=== PATIENT | female | born 1960 | race Hispanic/Latino ===

== ENCOUNTER 2017-11-03 19:30 | Outpatient (CLI) | payer MEDICARE, MEDICAID | END 2017-11-03 19:31 | disposition home or self-care (01) | LOC: SLEEPLAB 19:30 | PROVIDERS: ATTEND Family Medicine | DX: G47.33 Obstructive sleep apnea (adult) (pediatric) (principal); G47.10 Hypersomnia, unspecified; F41.9 Anxiety disorder, unspecified; I10 Essential (primary) hypertension | CPT/HCPCS: 95810 ==

== ENCOUNTER 2017-12-04 23:30 | Emergency (ER) | payer MEDICARE, MEDICAID | END 2017-12-05 00:02 | disposition home or self-care (01) | LOC: SCSER 23:30 | DX: L23.7 Allergic contact dermatitis due to plants, except food (principal); E78.5 Hyperlipidemia, unspecified; I10 Essential (primary) hypertension; E11.9 Type 2 diabetes mellitus without complications; F41.9 Anxiety disorder, unspecified; Z79.899 Other long term (current) drug therapy; Z79.84 Long term (current) use of oral hypoglycemic drugs | CPT/HCPCS: 99282 ==

== ENCOUNTER 2018-02-22 08:58 | Emergency (ER) | payer MEDICARE, MEDICAID ==
--- NOTE | 2018-02-22 10:04 | RAD ---
PA AND LATERAL VIEWS CHEST: Date: 02/22/18 HISTORY: Cough. FINDINGS: Comparison made with exam of 07/25/06. The cardiomediastinum is normal. The lungs are well expanded without focal areas of consolidation, pn eumothoraces, or pleural effusions. No acute osseous abnormalities are seen. IMPRESSION: No radiographic evidence of acute cardiopulmonary process. POS: [facility]
== END 2018-02-22 09:30 | disposition home or self-care (01) ==
LOC: SCSER 08:58
DX: J06.9 Acute upper respiratory infection, unspecified (principal); E78.5 Hyperlipidemia, unspecified; I10 Essential (primary) hypertension; E11.9 Type 2 diabetes mellitus without complications; F32.9 Major depressive disorder, single episode, unspecified; F41.9 Anxiety disorder, unspecified; Z79.899 Other long term (current) drug therapy; Z79.84 Long term (current) use of oral hypoglycemic drugs
CPT/HCPCS: 71046

== ENCOUNTER 2018-04-07 22:18 | Emergency (ER) | payer MEDICARE, MEDICAID | END 2018-04-08 00:10 | disposition home or self-care (01) | LOC: SCSER 22:18 | DX: M19.071 Primary osteoarthritis, right ankle and foot (principal); I10 Essential (primary) hypertension; E11.9 Type 2 diabetes mellitus without complications; F41.9 Anxiety disorder, unspecified; F32.9 Major depressive disorder, single episode, unspecified; E78.5 Hyperlipidemia, unspecified; Z79.899 Other long term (current) drug therapy; Z79.84 Long term (current) use of oral hypoglycemic drugs | CPT/HCPCS: 99283 ==

== ENCOUNTER 2018-07-20 22:09 | Emergency (ER) | payer MEDICARE, MEDICAID ==
[2018-07-20] MEDS ORDERED: Diazepam 5 MG TAB ONE (22:34)
[2018-07-20] MEDS ORDERED: Ketorolac Tromethamine 30 MG/ML VIAL ONE (22:35)
--- NOTE | 2018-07-20 23:11 | RAD ---
LUMBAR SPINE THREE VIEWS: HISTORY: Midline tenderness. Fall. Pain. FINDINGS: There are five lumbar type vertebral bodies. Vertebral body height is maintained. Disk space height s are preserved. No spondylolisthesis or spondylolysis. IMPRESSION: Unremarkable three views lumbar spine. POS: [facility]
[2018-07-20] MEDS ORDERED: Acetaminophen 325 MG TAB ONE ×2 (23:13→23:14)
[2018-07-20] MEDS ORDERED: HYDROcodone/Acetaminophen 10/325 mg Tablet ONE (23:13)
== END 2018-07-21 00:04 | disposition home or self-care (01) ==
LOC: SCSER 22:09
DX: M54.42 Lumbago with sciatica, left side (principal); E78.5 Hyperlipidemia, unspecified; I10 Essential (primary) hypertension; E11.9 Type 2 diabetes mellitus without complications; F32.9 Major depressive disorder, single episode, unspecified; F41.9 Anxiety disorder, unspecified; Z79.899 Other long term (current) drug therapy; Z79.84 Long term (current) use of oral hypoglycemic drugs
CPT/HCPCS: 72100; 96372; J1885

== ENCOUNTER 2018-11-13 13:55 | Outpatient (CLI) | payer MEDICARE, MEDICAID ==
--- NOTE | 2018-11-28 18:23 | MMO ---
Bilateral MAMMO Bilat Screen [facility]DI. CLINICAL HISTORY: Patient is 58 years old and is seen for screening. The patient has the following family history of breast cancer: mother, at age 48. The patient has no personal history of cancer. VIEWS: The views performed were: bilateral craniocaudal and bilateral mediolateral oblique. FILMS COMPARED: The present examination has been compared to prior imaging studies performed at [facility] on 02/08/2008 and 02/12/2008, and at [facility] on 11/25/2016 and 03/30/2017. This study has been interpreted with the assistance of computer-aided detection. MAMMOGRAM FINDINGS: There are scattered fibroglandular densities. There are no suspicious masses, suspicious calcifications, or new areas of architectural distortion. IMPRESSION: THERE IS NO MAMMOGRAPHIC EVIDENCE OF MALIGNANCY. A ROUTINE FOLLOW-UP MAMMOGRAM IN 1 YEAR IS RECOMMENDED. ACR BI-RADS Category 1 - Negative MAMMOGRAPHY NOTE: 1. A negative mammogram report should not delay a biopsy if a dominant of clinically suspicious mass is present. 2. Approximately 10% to 15% of breast cancers are not detected by mammography. 3. Adenosis and dense breasts may obscure an underlying neoplasm.
== END 2018-11-13 13:56 | disposition home or self-care (01) ==
LOC: SCSMAMMO 13:55
PROVIDERS: ATTEND Family Medicine
DX: Z12.31 Encounter for screening mammogram for malignant neoplasm of breast (principal); Z80.3 Family history of malignant neoplasm of breast
CPT/HCPCS: 77067

== ENCOUNTER 2019-04-08 16:16 | Emergency (ER) | payer MEDICARE, MEDICAID ==
[2019-04-08] MEDS ORDERED: Ketorolac Tromethamine 60 MG/2 ML VIAL ONE (16:37)
--- NOTE | 2019-04-08 16:48 | RAD ---
EXAM: XR Shoulder Lt 3 View STANDARD PROVIDED CLINICAL HISTORY: 3 views left shoulder FINDINGS: There is no evidence for fracture or other acute osseous abnormality. Alignment appears anatomic. Alma nt spaces appear preserved. Mild acromioclavicular joint degenerative change. Visualized left lung field appears clear. IMPRESSION: No evidence for an acute osseous abnormality. If there is persistent clinical concern, conservative m anagement and follow-up imaging advised.
--- NOTE | 2019-04-08 16:48 | RAD ---
EXAM: XR Humerus Lt 2 View STANDARD PROVIDED CLINICAL HISTORY: Pain FINDINGS: There is no evidence for fracture or other acute osseous abnormality. IMPRESSION: No evidence for an acute osseous abnormality. If there is persistent clinical concern, conservative m anagement and follow-up imaging advised.
== END 2019-04-08 17:07 | disposition home or self-care (01) ==
LOC: SCSER 16:16
DX: M25.512 Pain in left shoulder (principal); E78.5 Hyperlipidemia, unspecified; E78.00 Pure hypercholesterolemia, unspecified; I10 Essential (primary) hypertension; E11.9 Type 2 diabetes mellitus without complications; F32.9 Major depressive disorder, single episode, unspecified; F41.9 Anxiety disorder, unspecified; F17.210 Nicotine dependence, cigarettes, uncomplicated; Z79.84 Long term (current) use of oral hypoglycemic drugs; Z79.899 Other long term (current) drug therapy
CPT/HCPCS: 96372; J1885

== ENCOUNTER 2020-10-08 13:06 | Outpatient (CLI) | payer MEDICARE, MEDICAID | END 2020-10-08 13:07 | disposition home or self-care (01) | LOC: BICMRI 13:06 | PROVIDERS: ATTEND Orthopaedic Surgery | DX: M25.562 Pain in left knee (principal); S83.242A Other tear of medial meniscus, current injury, left knee, initial encounter ==

== ENCOUNTER 2020-12-14 11:11 | Outpatient (CLI) | payer MEDICARE, MEDICAID ==
[2020-12-14 13:10] LABS: #Eosinphils 0.1 10x3/uL (0.0-0.5); #Monocytes 0.5 10x3/uL (0.0-1.1); #Neutrophils 2.6 10x3/uL (1.5-8.4); %Basophils 0.4 % (0.0-2.0); %Eosinophils 2.3 % (0.0-6.0); %Lymphocytes 32.6 % (18.0-47.0); %Monocytes 10.4 % (0.0-10.0); %Neutrophils 54.1 % (40.0-75.0); Hemoglobin 12.1 g/dL (12.0-15.5); Mean Corpuscular HGB CONC 31.9 g/dL (32.0-36.0); Platelet Count 181 10x3/uL (150-450); RBC Distribution Width 12.9 % (11.5-14.5); Red Blood Cell (RBC) Count 4.03 10x6/uL (3.90-5.03); White Blood Cell (WBC) Count 4.8 10x3/uL (3.5-10.5)
[2020-12-15 06:59] LABS: SARS-CoV-2 PCR by NAA Not Detected (NotDetected)
== END 2020-12-14 11:12 | disposition home or self-care (01) ==
LOC: LABBT 11:11
PROVIDERS: ATTEND Orthopaedic Surgery
DX: Z01.818 Encounter for other preprocedural examination (principal); S83.242A Other tear of medial meniscus, current injury, left knee, initial encounter; M17.12 Unilateral primary osteoarthritis, left knee; Z20.822 Contact with and (suspected) exposure to COVID-19
CPT/HCPCS: 85025; 93005; U0003; U0005; 87635; 93010

== ENCOUNTER 2020-12-17 05:59 | Day surgery (SDC) | payer MEDICARE, MEDICAID ==
[2020-12-15 14:42] VITALS: BMI 38.4
[2020-12-17] MEDS ORDERED: Lidocaine 1% (PF) 30 ML VIAL ONE (06:26)
[2020-12-17] MEDS ORDERED: Bupivacaine 0.25% HCL 30 ML VIAL ONE (06:26)
[2020-12-17] MEDS ORDERED: EPINEPHrine 1 MG/ML AMP ONE (06:26)
[2020-12-17] MEDS ORDERED: Midazolam HCl 2 mg/2 ml Vial ONE (06:52)
[2020-12-17] MEDS ORDERED: Dexamethasone 20 MG/5 ML VIAL ONE (07:29)
[2020-12-17] MEDS ORDERED: PROPOFOL 200 MG/20 ML VIAL ONE (07:29)
[2020-12-17] MEDS ORDERED: Ondansetron PF 4 MG/2 ML Vial ONE (07:29)
[2020-12-17] MEDS ORDERED: Lidocaine 1% PF 5 ML VIAL ONE (07:29)
[2020-12-17] MEDS ORDERED: Fentanyl 100 MCG/2 ML VIAL ONE ×2 (07:35→08:46)
[2020-12-17] MEDS ORDERED: HYDROcodone/Acetaminophen 5/325 mg Tablet ONE (09:08)
== END 2020-12-17 10:30 | disposition home or self-care (01) ==
LOC: SDC 05:59
PROVIDERS: ATTEND Orthopaedic Surgery
PROC: 0SBD4ZZ Excision of Left Knee Joint, Percutaneous Endoscopic Approach (ICD-10-PCS; principal; 2020-12-17)
DX: M23.201 Derangement of unspecified lateral meniscus due to old tear or injury, left knee (principal); M17.12 Unilateral primary osteoarthritis, left knee; I10 Essential (primary) hypertension; G89.29 Other chronic pain; M54.5 Low back pain; F17.200 Nicotine dependence, unspecified, uncomplicated; Z79.899 Other long term (current) drug therapy; Z88.5 Allergy status to narcotic agent
CPT/HCPCS: J0171; J0690; J1100; J2001; J2250; J2405; J2704; J3010; S0020

== ENCOUNTER 2022-06-15 13:36 | Outpatient (CLI) | payer MEDICARE, MEDICAID | END 2022-06-15 13:37 | disposition home or self-care (01) | LOC: BICRAD 13:36 | PROVIDERS: ATTEND Family Medicine | DX: M79.671 Pain in right foot (principal) ==